=== PATIENT | female | born 1975 ===

== ENCOUNTER 2020-12-24 13:13 | Emergency (ER) | payer SELFPAY ==
[2020-12-24] MEDS ORDERED: Lidocaine 1% (PF) 30 ML VIAL ONE (14:21)
[2020-12-24] MEDS ORDERED: Boostrix 0.5 ML (Tdap) VIAL ONE (14:24)
== END 2020-12-24 14:55 | disposition home or self-care (01) ==
LOC: ERS 13:13
DX: S61.012A Laceration without foreign body of left thumb without damage to nail, initial encounter (principal); F17.210 Nicotine dependence, cigarettes, uncomplicated; Z23 Encounter for immunization; W26.0XXA Contact with knife, initial encounter
CPT/HCPCS: 12001; 90471; 90715; J2001